=== PATIENT | female | born 1995 | race Caucasian/White ===

== ENCOUNTER → 2022-08-21 | Outpatient (CLI) | payer MEDICAID, SELFPAY ==
[2022-08-21 14:12] LABS: Absolute Lymphocyte Count 3.92 X10^3/uL (0.83-4.51); Basophil# 0.04 X10^3/uL; Basophil% 0.3 % (0-1); Eosinophil# 0.18 X10^3/uL; Eosinophils% 1.3 % (0-5); Hematocrit 44.6 % (37-47); Hemoglobin 15.3 g/dL (12.0-15.0); Lymphocyte # 3.92 X10^3/ul (0.83-4.51); Lymphocyte % 27.8 % (19-41); Mean Corp Hgb Conc 34.3 g/dL (32-36); Mean Corpuscular Hgb 30.3 pg (27.0-32.0); Mean Corpuscular Volume 88.3 fL (81-99); Monocyte# 0.93 X10^3/uL; Monocyte% 6.6 % (0-10); NRBC Flagged by Analyzer 0 % (0-5); Neutrophil # 8.97 X10^3/uL (2.7-7.7); Neutrophil % 63.5 % (47-70); Platelet Count 259 K/mm3 (150-450); RBC Distribution Width CV 12.4 % (11.6-14.6); RBC Distribution Width SD 40.6 fl (35.1-43.9); Red Blood Count 5.05 M/mm3 (4.2-5.4); White Blood Count 14.1 K/mm3 (4.4-11.0)
[2022-08-21 14:39] LABS: hCG Titer Quant., Serum 2 mIU/mL (1-3)
[2022-08-21 14:42] LABS: Estradiol 26.9 pg/mL; Follicle Stimulating Hormone 5.4 mIU/mL; Luteinizing Hormone 4.6 mIU/mL; T4 Free Direct 0.98 ng/dL (0.76-1.46); Thyroid Stim Hormone (TSH) 0.72 uIU/mL (0.358-3.74)
== END | disposition home or self-care (01) ==
PROVIDERS: Visit Provider Obstetrics & Gynecology
DX: N93.9 Abnormal uterine and vaginal bleeding, unspecified (principal)
CPT/HCPCS: 36415; 82670; 83001; 83002; 84439; 84443; 84702; 85025; 86850; 86900; 86901

== ENCOUNTER 2022-09-02 23:05 | Emergency (ER) | payer MEDICAID, SELFPAY ==
[2022-09-02 23:06] VITALS: BP 126/87; PULSE 94; RESP 16; TEMP 36.7; O2SAT 98; BMI 34.9
--- NOTE | 2022-09-02 23:14 | EX.ED.DYSGE1 ---
HPI History of Present Illness Chief Complaint: Abscess Informant: patient Onset/Context/Timing Onset: Days Context: Gradual Onset Current Severity: Moderate Maximum Severity: Moderate Narrative Narrative: Patient presents with left perineal abscess. She states she first noticed it a couple days ago. Usually she states she will get these and then will go away on their own. This one has become more painful and firm. Patient denies fever or chills. She is not diabetic. She denies possibility of . [facility] Medical History (Updated 09/02/22 @ 23:[address] Christine Arroyo MD) Anxiety Depression IBS (irritable bowel syndrome) Medical History no medical history no medical history Home Medications cephalexin 500 mg capsule 500 mg PO Q6 #40 caps 09/02/22 [Rx Last Taken Unknown] sulfamethoxazole 800 mg-trimethoprim 160 mg tablet (Bactrim DS) 1 tab PO BID #20 tabs 09/02/22 [Rx Last Taken Unknown] Allergy/AdvReac Type Severity Reaction Status Date / Time No Known Allergies Allergy Verified 09/02/22 23:07 Social History Smoking Status: Current every day smoker tobacco type: cigarettes ROS ROS ED Constitutional Constitutional ED: Denies chills or fever(s) Eyes Eyes: Denies change in vision or discharge from eye(s) ENT ENT ED: Denies discharge from eye(s), rhinorrhea or sore throat Cardiovascular Cardiovascular: Denies chest pain or palpitations Respiratory/Chest Respiratory/Chest: Denies cough or dyspnea Gastrointestinal Gastrointestinal: Denies abdominal pain, diarrhea, nausea or vomiting Genitourinary Genitourinary ED: Denies difficulty urinating or dysuria Musculoskeletal Musculoskeletal: Denies back pain or extremity pain Integumentary Reports abscess; Denies Abrasions or rash Neurologic Neurologic: Denies headache(s) or weakness Allergic/Immunologic Allergic/Immunologic ED: Denies lip swelling or urticaria EXAM Physical Exam Const Vital Signs: 09/02/22 23:06 Temperature 98.0 F Temperature Source Temporal Pulse Rate 94 Respiratory Rate 16 Blood Pressure 126/87 H Blood Pressure Mean 100 Pulse Ox 98 Oxygen Delivery Method Room Air Positive well nourished and well developed General Appearance ED: well developed HEENT Reports normocephalic and head/scalp atraumatic Eyes PERRL and EOMs intact bilaterally Neck supple Chest Wall inspection of chest normal and palpation of chest normal Resp normal respiratory effort and clear to auscultation bilaterally Cardio regular rate and regular rhythm GI normal to inspection, nondistended, normoactive bowel sounds Palpation: soft Narrative: 1.5 cm round abscess along the medial inferior left buttock. No tenderness along the labia. No overlying cellulitis. Area is indurated and firm with no fluctuance. Back/Spine no CVA tenderness Extremity normal to inspection Neuro oriented x3 and no sensory deficits noted Sensorium / Orientation: alert Motor Exam: strength 5/5 throughout Psych mental status grossly normal Skin Skin Narrative: Abscess as noted above. MDM MDM Treatment and Re-Evaluation Narrative: I discussed with the patient at this time the area is very indurated and firm. I do not believe I will get a lot of drainage out of it if we do I&D. We will treat her with oral antibiotics and have her do warm sitz baths. She is comfortable this plan. Return instructions were given. Discharge Plan Triage Chief Complaint: Abscess ED Provider: Christine Arroyo Dx/Rx/DC Orders Clinical Impression: Cutaneous abscess Instructions: ED Abscess Antibiotic Treatment Only Prescriptions: New sulfamethoxazole-trimethoprim [Bactrim DS] 800-160 mg tablet 1 tab PO BID Qty: 20 0RF cephalexin 500 mg capsule 500 mg PO Q6 Qty: 40 0RF Primary Care Provider: NOT,DEFINED Referrals: NOT,DEFINED [Primary Care Provider] - Disposition Disposition: Home, Self Care
[2022-09-02] MEDS: Cephalexin 250 MG Capsule 500 MG PO (23:26)
[2022-09-02] MEDS: Smz/Tmp Ds Tablet 1 TABLET PO (23:26)
== END 2022-09-02 23:28 | disposition home or self-care (01) ==
LOC: ED 23:21
PROVIDERS: Emergency Provider Emergency Medicine; Visit Provider Emergency Medicine
DX: L02.91 Cutaneous abscess, unspecified (principal); F17.210 Nicotine dependence, cigarettes, uncomplicated; F41.9 Anxiety disorder, unspecified; F32.A Depression, unspecified; K58.9 Irritable bowel syndrome, unspecified
CPT/HCPCS: 99283

== ENCOUNTER 2023-12-09 16:25 | Outpatient (CLI) | payer OTHER, SELFPAY ==
[2023-12-09 17:03] VITALS: BMI 36.1
[2023-12-09 17:05] VITALS: BP 120/66; PULSE 86; RESP 16; TEMP 37.2
[2023-12-09 17:15] LABS: Bacteria 0 SEEN /hpf (None Seen); Mucous, Urine 0 SEEN /hpf (<or=2+); Red Blood Cells-Urine 0 SEEN /hpf (0-5); White Blood Cells 0 SEEN /hpf (0-5)
[2023-12-09 17:20] VITALS: PULSE 86; O2SAT 97
[2023-12-09 17:28] LABS: Color, Urine Yellow (Yellow); Glucose, Dipstick Normal (Normal); Ketone-Dipstick 50 mg/dl (Negative); Leukocyte Esterase-Dipstick 25 /ul (Negative); Nitrite-Dipstick Negative (Negative); Occult Blood-Urine Negative /ul (Negative); Protein-Dipstick 15 mg/dl (Negative); Urine Bilirubin Dipstick Negative (Negative); Urine Clarity Clear (Clear); Urine Urobilinogen Normal (Normal)
[2023-12-09 17:39] LABS: Squamous Epithelial Cells - UA 5-10 SEEN /hpf (5-10)
--- NOTE | 2023-12-14 12:38 | OB.TRI.HP_ITS ---
HPI - General General Date of Service: 12/09/23 HPI Narrative MARYBEL TOLENTINO, is a 28 F who presents for pelvic pain. [facility] Medical History (Updated 12/14/23 @ 12:[address] Rona Villeda MD) Anxiety Depression IBS (irritable bowel syndrome) Home Medications NK 12/09/23 [History Last Taken Unknown] Allergy/AdvReac Type Severity Reaction Status Date / Time No Known Allergies Allergy Verified 12/09/23 17:04 Social History Smoking Status: Current every day smoker tobacco type: cigarettes Assessment & Plan (1) Threatened labor: QUALIFIERS: Trimester: second trimester Qualified Code(s): O47.02 - False labor before 37 completed weeks of gestation, second trimester PLAN: Plan Eval for pelvic pain
== END 2023-12-09 18:00 | disposition home or self-care (01) ==
LOC: WPOUT 17:02 → WP 17:03
PROVIDERS: Referring Provider Obstetrics & Gynecology; Visit Provider Obstetrics & Gynecology
DX: O47.1 False labor at or after 37 completed weeks of gestation (principal); Z3A.37 37 weeks gestation of pregnancy; O99.333 Smoking (tobacco) complicating pregnancy, third trimester; F17.210 Nicotine dependence, cigarettes, uncomplicated
CPT/HCPCS: 59025; 59050; 81001; 87086; 87088; 99221; G0378

== ENCOUNTER 2024-01-10 11:25 | Outpatient (CLI) | payer OTHER, SELFPAY ==
[2024-01-10] MEDS: Rho(D) Immune Globulin 300 MCG (1500 Unit) Syringe IV (12:36)
--- NOTE | 2024-01-11 12:18 | OB.TRI.NOTE ---
HPI - General General Date of Admission: 01/10/24 Date of Service: 01/10/24 HPI Narrative MARYBEL TOLENTINO, is a 28 F who presents s/p fall on her knees on 01/06, neg KB stain at [facility] labs. presents for prophylactic rhogam, had already at approx 28 weeks. No other c/o Maternal Data Information Final DISHA: 03/05/24 Gestational age: 32 PFSH [facility] Medical History (Updated 01/11/24 @ 12:[address] Emily Vale MD) IBS (irritable bowel syndrome) Anxiety Depression Home Medications ?Medication ?Instructions ?Recorded ?Last Taken ?Type NK 12/09/23 Unknown History Allergy/AdvReac Type Severity Reaction Status Date / Time No Known Allergies Allergy Verified 12/09/23 17:04 Social History Smoking Status: Current every day smoker tobacco type: cigarettes Assessment & Plan (1) Rh negative state in antepartum period: (2) Fall (on) (from) other stairs and steps, initial encounter: (3) 32 weeks gestation of : (4) High risk multigravida:
== END 2024-01-10 12:40 | disposition home or self-care (01) ==
LOC: WPOUT 11:31 → WP 11:31
PROVIDERS: Visit Provider Advanced Practice Midwife
DX: O9A.213 Injury, poisoning and certain other consequences of external causes complicating pregnancy, third trimester (principal); O99.333 Smoking (tobacco) complicating pregnancy, third trimester; Z3A.32 32 weeks gestation of pregnancy; O26.893 Other specified pregnancy related conditions, third trimester; W10.9XXA Fall (on) (from) unspecified stairs and steps, initial encounter; T14.90XA Injury, unspecified, initial encounter
CPT/HCPCS: 36415; 86900; 86901; 90384; 96372; 99221; G0378; J2790; J2791

== ENCOUNTER 2024-02-28 11:23 | Inpatient (IN) | payer OTHER, SELFPAY ==
[2024-02-28] VITALS (42 sets, daily range): BP systolic 102–139; BP diastolic 50–74; PULSE 69–101; RESP 14–18; TEMP 36.1–36.8; O2SAT 94–100; BMI 34.7
[2024-02-28] MEDS: Lactated Ringers 1,000 ML 50 ML IV (11:56)
[2024-02-28 12:12] LABS: Absolute Lymphocyte Count 5.26 X10^3/uL (0.83-4.51); Absolute Neutrophil Count 13.9 X10^3/uL (2.0-7.7); Basophil# 0.09 X10^3/uL; Basophil% 0.4 % (0-1); Eosinophils% 1.4 % (0-5); Hematocrit 33.5 % (37-47); Hemoglobin 10.9 g/dL (12.0-15.0); Lymphocyte # 5.26 X10^3/ul (0.83-4.51); Lymphocyte % 23.7 % (19-41); Mean Corp Hgb Conc 32.5 g/dL (32-36); Mean Corpuscular Hgb 27.5 pg (27.0-32.0); Mean Corpuscular Volume 84.4 fL (81-99); Mean Platelet Vol. 9.6 fl (6.2-12.0); Monocyte# 1.92 X10^3/uL; Monocyte% 8.6 % (0-10); NRBC Flagged by Analyzer 0 % (0-5); Neutrophil # 13.92 X10^3/uL (2.7-7.7); Neutrophil % 62.7 % (47-70); POSITIVE DIFFERENTIAL YES; Platelet Count 284 K/mm3 (150-450); RBC Distribution Width CV 14.1 % (11.6-14.6); RBC Distribution Width SD 43.8 fl (35.1-43.9); Red Blood Count 3.97 M/mm3 (4.2-5.4); White Blood Count 22.2 K/mm3 (4.4-11.0)
[2024-02-28 12:15] LABS: Differential Indicated SCAN CRITERIA MET
[2024-02-28] MEDS: Oxytocin 15 Units/NS 250ml 15 UNITS/250 ML IV.SOLN 2 UNITS IV (12:15)
[2024-02-28 12:24] LABS: Bedside Glucose 69 mg/dL (74-106)
[2024-02-28 12:57] LABS: Syphilis Antibodies Non-reactive
[2024-02-28 13:11] LABS: Differential Comment SCANNED; Red Cell Morphology NORM C+C NORMAL (NORM C&C); Vacuolated Cells 1+
[2024-02-28 16:36] LABS: Bedside Glucose 92 mg/dL (74-106)
[2024-02-28 19:40] LABS: Bedside Glucose 72 mg/dL (74-106)
[2024-02-28] MEDS: Lactated Ringers 1,000 ML 999 ML IV (20:00)
[2024-02-28] MEDS: fentaNYL-bupivacaine (epidural) 100 ML BAG EPIDURAL (21:10)
--- NOTE | 2024-02-28 21:41 | PN.OBGYN_ITS ---
Subjective Subjective AROM for clear fluid. Internal monitors placed without difficulty. Epidural in place. 4 cm Objective Data Objective Data Vital Signs: Vital Signs Temp Pulse Resp BP Pulse Ox 98.1 F 89 14 124/56 H 100 02/28/24 21:38 02/28/24 21:40 02/28/24 21:38 02/28/24 21:40 02/28/24 21:34 Weight: 103.589 kg Body Mass Index (BMI) 34.7 Intake & Output: Intake and Output for Last 24 Hours 02/26/24 02/27/24 02/28/24 23:59 23:59 23:59 Intake Total 967.44 / 967.44 Output Total 300 / 300 Balance 667.44 / 667.44 Lab / Micro Data 02/28/24 11:50 Labs: Laboratory Results - last 24 hr 02/28/24 11:50: WBC 22.2 H, RBC 3.97 L, Hgb 10.9 L, Hct 33.5 L, MCV 84.4, MCH 27.5, MCHC 32.5, RDW Std Deviation 43.8, RDW Coeff of Rey 14.1, Plt Count 284, MPV 9.6, Immature Gran % (Auto) 3.200 H, Neut % (Auto) 62.7, Lymph % (Auto) 23.7, Wallace % (Auto) 8.6, Eos % (Auto) 1.4, Baso % (Auto) 0.4, Absolute Neuts (auto) 13.9 H, Absolute Lymphs (auto) 5.26 H, Nucleated RBC % 0, Differential Comment SCANNED, Diff Path Review May foll, Toxic Vacuolation 1+, RBC Morphology NORM C+C, Syphilis Total Ab Non-reactive, Blood Type AB NEGATIVE, Antibody Screen POSITIVE H, Antibody Identification ANTI-D 02/28/24 11:50: Antibody Identification Cancelled 02/28/24 12:04: POC Glucose 69 L 02/28/24 16:14: POC Glucose 92 02/28/24 19:18: POC Glucose 72 L NST FHR Rate Baby A Baseline: 120 Variability:: Moderate Accelerations:: 15 x 15 Decelerations:: None NST Reactive:: Yes FHR Category:: Category I Uterine Activity:: q 3
--- NOTE | 2024-02-28 21:43 | PCM.HP.OB ---
HPI - General General Date of Admission: 02/28/24 Date of Service: 02/28/24 Chief Complaint: Induction HPI Narrative MARYBEL TOLENTINO, is a 28 F who presents induction of labor for GDM on insulin Maternal Data Information Final DISHA: 03/05/24 Gestational age: 39+1 PFSH PFSH Medical History (Updated 02/28/24 @ 21:[address] Christine Lozano MD) IBS (irritable bowel syndrome) Anxiety Depression Medical History no medical history Home Medications ?Medication ?Instructions ?Recorded ?Last Taken ?Type blood sugar diagnostic (Contour 02/28/24 Unknown History Next Test Strips) blood-glucose meter (Contour Next 02/28/24 Unknown History EZ Meter) insulin NPH isoph U-100 human 100 12 unit subcut QHS GDM 02/28/24 02/27/24 History unit/mL (3 mL) subcutaneous pen (Humulin N NPH U-100 Insulin KwikPen) lancets (Microlet Lancet) 02/28/24 Unknown History pen needle, diabetic 31 gauge x 02/28/24 Unknown History 1/4 (Droplet Pen Needle) Allergy/AdvReac Type Severity Reaction Status Date / Time No Known Allergies Allergy Verified 02/28/24 12:03 Family History no significant family his Surgical History no surgical history Social History Smoking Status: Heavy Smoker (>10/day) History 3 Elective abortions Hx Para 1 Spontaneous abortions Hx # Term Pregnancies Ectopic pregnancies Hx # Pregnancies Multiple births # of living children NST FHR Rate Baby A Variability:: Moderate Accelerations:: 15 x 15 Decelerations:: None NST Reactive:: Yes FHR Category:: Category I ROS Constitutional Constitutional: Denies fatigue, fever(s) or malaise Eyes Eyes: Denies change in vision ENT HEENT: Denies dizziness or headache(s) Cardiovascular Cardiovascular: Denies chest pain, dyspnea or lightheadedness Respiratory/Chest Respiratory/Chest: Denies cough or dyspnea Gastrointestinal Gastrointestinal: Denies change in bowel habits Genitourinary Genitourinary: Denies burning urination or genital lesions Integumentary Integumentary: Denies rash Neurologic Neurologic: Denies confusion, dizziness, headache(s), numbness or weakness Vital Signs Vital Signs Vital Signs: 02/28/24 10:58 02/28/24 10:58 02/28/24 10:58 Temperature 97.0 F L Temperature Source Tympanic Pulse Rate Respiratory Rate 17 Blood Pressure BP Systolic BP Diastolic Pulse Ox 02/28/24 11:01 02/28/24 11:01 02/28/24 14:01 Temperature Temperature Source Pulse Rate 80 Respiratory Rate Blood Pressure 121/62 H 115/59 L BP Systolic 121 115 BP Diastolic 62 59 Pulse Ox 02/28/24 14:01 02/28/24 14:01 02/28/24 14:01 Temperature Temperature Source Tympanic Pulse Rate 69 Respiratory Rate 16 Blood Pressure BP Systolic BP Diastolic Pulse Ox 02/28/24 14:01 02/28/24 15:25 02/28/24 15:25 Temperature 97.0 F L Temperature Source Tympanic Pulse Rate Respiratory Rate 16 Blood Pressure BP Systolic BP Diastolic Pulse Ox 02/28/24 15:25 02/28/24 15:26 02/28/24 15:26 Temperature 97.0 F L Temperature Source Pulse Rate 76 Respiratory Rate Blood Pressure 132/61 H BP Systolic 132 BP Diastolic 61 Pulse Ox 02/28/24 16:41 02/28/24 16:41 02/28/24 16:41 Temperature 97.1 F L Temperature Source Tympanic Pulse Rate Respiratory Rate 15 Blood Pressure BP Systolic BP Diastolic Pulse Ox 02/28/24 16:42 02/28/24 16:42 02/28/24 19:13 Temperature Temperature Source Temporal Pulse Rate 83 Respiratory Rate Blood Pressure 107/52 L BP Systolic 107 BP Diastolic 52 Pulse Ox 02/28/24 19:13 02/28/24 19:13 02/28/24 19:14 Temperature 98.2 F Temperature Source Pulse Rate Respiratory Rate 14 Blood Pressure 116/59 L BP Systolic 116 BP Diastolic 59 Pulse Ox 02/28/24 19:14 02/28/24 19:16 02/28/24 19:16 Temperature Temperature Source Pulse Rate 81 81 Respiratory Rate Blood Pressure BP Systolic BP Diastolic Pulse Ox 97 02/28/24 20:32 02/28/24 20:32 02/28/24 20:54 Temperature Temperature Source Pulse Rate 84 88 Respiratory Rate Blood Pressure BP Systolic BP Diastolic Pulse Ox 97 02/28/24 20:54 02/28/24 20:59 02/28/24 20:59 Temperature Temperature Source Pulse Rate 95 Respiratory Rate Blood Pressure BP Systolic BP Diastolic Pulse Ox 100 99 02/28/24 20:59 02/28/24 20:59 02/28/24 20:59 Temperature Temperature Source Pulse Rate 97 Respiratory Rate 16 Blood Pressure 135/74 H BP Systolic 135 BP Diastolic 74 Pulse Ox 02/28/24 21:03 02/28/24 21:03 02/28/24 21:04 Temperature Temperature Source Pulse Rate 88 91 Respiratory Rate Blood Pressure 137/65 H BP Systolic 137 BP Diastolic 65 Pulse Ox 02/28/24 21:04 02/28/24 21:08 02/28/24 21:08 Temperature Temperature Source Pulse Rate 86 Respiratory Rate Blood Pressure 132/62 H BP Systolic 132 BP Diastolic 62 Pulse Ox 97 02/28/24 21:08 02/28/24 21:09 02/28/24 21:09 Temperature Temperature Source Pulse Rate 88 Respiratory Rate 14 Blood Pressure BP Systolic BP Diastolic Pulse Ox 98 02/28/24 21:14 02/28/24 21:14 02/28/24 21:15 Temperature Temperature Source Pulse Rate 88 Respiratory Rate Blood Pressure 106/53 L BP Systolic 106 BP Diastolic 53 Pulse Ox 99 02/28/24 21:15 02/28/24 21:15 02/28/24 21:19 Temperature Temperature Source Pulse Rate 90 90 Respiratory Rate 14 Blood Pressure BP Systolic BP Diastolic Pulse Ox 02/28/24 21:19 02/28/24 21:19 02/28/24 21:19 Temperature Temperature Source Pulse Rate 83 Respiratory Rate Blood Pressure 103/53 L BP Systolic 103 BP Diastolic 53 Pulse Ox 97 02/28/24 21:19 02/28/24 21:24 02/28/24 21:24 Temperature Temperature Source Pulse Rate 91 Respiratory Rate 16 Blood Pressure BP Systolic BP Diastolic Pulse Ox 97 02/28/24 21:25 02/28/24 21:25 02/28/24 21:29 Temperature Temperature Source Pulse Rate 80 84 Respiratory Rate Blood Pressure 104/51 L BP Systolic 104 BP Diastolic 51 Pulse Ox 02/28/24 21:29 02/28/24 21:30 02/28/24 21:30 Temperature Temperature Source Pulse Rate 85 Respiratory Rate Blood Pressure 110/59 L BP Systolic 110 BP Diastolic 59 Pulse Ox 98 02/28/24 21:34 02/28/24 21:34 02/28/24 21:38 Temperature Temperature Source Temporal Pulse Rate 101 H Respiratory Rate Blood Pressure BP Systolic BP Diastolic Pulse Ox 100 02/28/24 21:38 02/28/24 21:38 02/28/24 21:40 Temperature 98.1 F Temperature Source Pulse Rate Respiratory Rate 14 Blood Pressure 124/56 H BP Systolic 124 BP Diastolic 56 Pulse Ox 02/28/24 21:40 Temperature Temperature Source Pulse Rate 89 Respiratory Rate Blood Pressure BP Systolic BP Diastolic Pulse Ox Weight Weight: 103.589 kg Body Mass Index (BMI) 34.7 Physical Exam Const alert and no apparent distress General Appearance: cooperative HEENT normocephalic Resp normal respiratory effort Cardio regular rate GI soft to palpation GI Narrative: gravid, nontender, appropriate for gestational age Extremity no calf tenderness General Extremity: edema Skin no wounds Rashes: No rashes noted Psych activity/motor behavior normal Labs Labs Labs: Blood Type AB NEGATIVE Antibody Screen POSITIVE H Hct 33.5 % (37-47) L Hgb 10.9 g/dL (12.0-15.0) L Syphilis Total Ab Non-reactive Assessment & Plan (1) GDM, class A2: (2) 39 weeks gestation of : PLAN: Plan Pitocin induction of labor GBS negative Epidural prn
[2024-02-28] MEDS: LACTATED RINGERS 500 ML 999 ML IV (23:19)
[2024-02-28] MEDS: Lactated Ringers 1,000 ML 200 ML IV (23:22)
[2024-02-28 23:40] LABS: Bedside Glucose 92 mg/dL (74-106)
[2024-02-29] VITALS (32 sets, daily range): BP systolic 107–131; BP diastolic 53–75; PULSE 72–104; RESP 12–17; TEMP 36.2–37.2; O2SAT 88–98
[2024-02-29] MEDS: Ondansetron 4 MG/2 ML Vial IV
[2024-02-29 00:09] LABS: Bedside Glucose 87 mg/dL (74-106)
[2024-02-29] MEDS: fentaNYL-bupivacaine (epidural) 100 ML BAG EPIDURAL (00:33)
[2024-02-29 01:33] LABS: Bedside Glucose 79 mg/dL (74-106)
[2024-02-29] MEDS: Oxytocin 15 Units/NS 250ml 15 UNITS/250 ML IV.SOLN 83 UNITS IV (02:33)
--- NOTE | 2024-02-29 02:44 | EX.PCM.OBRPT ---
Assessment & Plan (1) GDM, class A2: (2) (spontaneous vaginal delivery): Maternal Data Information Final DISHA: 03/05/24 Gestational age: 39+2 Vaginal Delivery Maternal Presentation Maternal Presentation: Medically Indicated Induction Maternal Presentation: GDM on insulin Type of Induction: Pitocin and Amniotomy Operative Information Date of Procedure: 02/29/24 Pre-Operative Diagnosis: Term IUP GDMA2 Post-Operative Diagnosis: same Surgery / Procedure Performed: Spontaneous Vaginal Delivery Type of Anesthesia: Epidural Estimated Blood Loss: 100 cc Time of Delivery: 01:58 Findings Description of Procedure: Patient pushed over an intact perineum delivering the head in OA presentation. Followed quickly by both shoulders. Infant cried on delivery. He was placed on maternal abdomen. Cord was clamped and cut. The Placenta delivered with manual traction. The cord did evulse. The uterus was explored and no additional tissue was found. Bleeding is minimal. A second degree laceration was repaired Presentation: Vertex and PAIGE Amniotic Membrane Rupture Type: Artificial Time of Membrane Rupture: 2129 Amniotic Fluid Description: Clear Placental Delivery Description: Expressed and Manual Removal Placenta Disposition: [facility] Cord Vessel Description: 3 Vessels Cord Entanglement: None Infant A Gender: Male (1 minute): 8 (5 minute): 9 Delayed Cord Clamping: Yes Post Vaginal Delivery Medications Given After Delivery: IV Pitocin Episiotomy Description: None Laceration: Midline and 2nd degree Complication Complications: None
[2024-02-29 03:21] LABS: Bedside Glucose 97 mg/dL (74-106)
[2024-02-29] MEDS: Rho(D) Immune Globulin 300 MCG (1500 Unit) Syringe IV (04:07)
[2024-02-29] MEDS: Ibuprofen 600 MG Tablet PO (04:08)
[2024-02-29] MEDS: 0.9% Saline Lock 10 ML Syringe IV (05:39)
[2024-02-29 11:46] LABS: Pathologist Review Reviewed
[2024-02-29] MEDS: Acetaminophen 500 MG Tablet 1000 MG PO (20:09)
[2024-03-01] VITALS (9 sets, daily range): BP systolic 106–119; BP diastolic 52–61; PULSE 69–88; RESP 14–16; TEMP 36.4–37.3; O2SAT 93–98
[2024-03-01 06:18] LABS: Bedside Glucose 73 mg/dL (74-106)
--- NOTE | 2024-03-01 09:08 | PCM.DC.SUM ---
Providers Date of Admission: 02/28/24 Primary Care Physician: Dr. Brigida Bhagat, DO Reason For Visit: VAGINAL DELIVERY Diagnosis Discharge Diagnosis (1) GDM, class A2: Status: Acute Code(s): O24.419 - Gestational diabetes mellitus in , unspecified control (2) (spontaneous vaginal delivery): Status: Acute Code(s): O80 - Encounter for full-term uncomplicated delivery Medications at Discharge Home Medications blood sugar diagnostic (Contour Next Test Strips) 02/28/24 blood-glucose meter (Contour Next EZ Meter) 02/28/24 lancets (Microlet Lancet) 02/28/24 pen needle, diabetic 31 gauge x 1/4 (Droplet Pen Needle) 02/28/24 ibuprofen 600 mg tablet 600 mg PO Q6H PRN PRN Pain Score 1-10 #0 tabs 03/01/24 Hospital Course Operations None Procedures None Summary of Care Provided Minutes Spent on Discharge: 15 Hospital Course: Patient had . Hospital course was uneventful. Pumping and giving via bottle. May supplement with formula. Ambulating and voiding without difficulty. Lochia is minimal. Denies pain. Desires discharge home today. Physical Exam Const alert and no apparent distress General Appearance: cooperative and comfortable Exam Limitations: no limitations HEENT normocephalic Eyes General Eye: normal appearance of both eyes Neck full ROM General: normal visual inspection Chest Chest: symmetrical chest wall rise Resp normal respiratory effort and normal air movement Effort and Inspection: symmetric chest movement Auscultation: clear to auscultation bilaterally Cardio regular rate and regular rhythm GI normal to inspection, nondistended, normoactive bowel sounds Back/Spine normal ROM Extremity full ROM and no calf tenderness General Extremity: normal exam except as noted Skin no rashes or lesions noted Neuro CN's II-XII intact bilaterally Psych mental status grossly normal Weight / BMI Weight Weight: 228 lb 6 oz Body Mass Index (BMI) 34.7 ABG / Lab / Microbiology Data 02/28/24 11:50 Laboratory: Laboratory Results - last 24 hr 02/28/24 11:50: Diff Path Review Reviewed 03/01/24 05:59: POC Glucose 73 L D/C Instructions Discharge Diet: No restrictions May resume sexual activity in: 6-8 weeks Weight Bearing Status: Weight bearing as tolerated Call your doctor if you observe: Fever of 101 or Higher, Inability to urinate, Using more than 1 pad per hour, Shortness of breath, Chest pain, Calf discomfort and Uncontrolled pain When: 2 weeks virtual visit/ 6 weeks in office Meaningful Use Info Meaningful Use Meaningful Use Diagnoses (Choose all that apply): None applicable Ischemic Stroke Statin Dosing Therapy Reference: STATIN DOSE THERAPY REFERENCE: * Patients > 75 years receive moderate or high dose statin therapy. * Patients 75 years or YOUNGER should receive HIGH intensity statin dose unless contraindicated. You will be required to document reason for non-treatment if statin daily dose does not meet guidelines. HIGH DOSE STATIN THERAPY DAILY Atorvastatin > than or = to 40 mg Rosuvastatin > than or = to 20 mg Amlodipine + Atorvastatin > than or = to 2.5/40 mg Ezetimibe + Simvastatin 10/80 mg Simvastatin 80mg Discharge Plan Admission Admit Date/Time: 02/28/24 11:23 Primary Reason for Your Visit: Labor and Delivery Attending Provider: Christine Lozano Primary Care Provider: Brigida Bhagat Discharge Orders/Prescriptions Prescriptions: New ibuprofen 600 mg Tablet 600 mg PO Q6H PRN PRN (Reason: Pain Score 1-10) Qty: 0 0RF Discontinued Humulin N NPH Insulin KwikPen 100 unit/mL (3 mL) insulin pen 12 unit subcut QHS No Action (DME) Contour Next Test Strips Strip MISCELLANEOUS (DME) lancets [Microlet Lancet] Misc MISCELLANEOUS Patient Comments: use 1 LANCET to TEST BLOOD SUGAR UP TO 7 TIMES DAILY (DME) pen needle, diabetic [Droplet Pen Needle] 31 gauge x 1/4 needle MISCELLANEOUS DAILY (DME) blood-glucose meter [Contour Next EZ Meter] Misc MISCELLANEOUS UD Referrals / Follow Up: Brigida Bhagat DO [Primary Care Provider] - Disposition Disposition (needs filled in before D/C Order can be placed): Home, Self Care
--- NOTE | 2024-03-01 12:14 | CASEMGMT ---
Social Work Assessment Labor and Delivery Unit Patient Address: [address] [place] [address] Phone number: [phone] Date of Referral: 02/29/24 Time of Referral:? 652 Referred By: Christine Lozano Date of Intervention: ?03/01/24? Time of Intervention:? 944 Reason for Referral:? mental health Sw completed chart review and acknowledges social work consult due to maternal mental health. Sw presented to bedside and introduced self to mother of baby (MOB- [place]) and father of baby (FOB- Eber). Sw explained reason for sw involvement and completed psychosocial assessment. History obtained from: medical records, MOB and FOB Household composition: EVER states that currently residing in the family home is herself, FOB and MOB's 10 year old son (Omar). EVER denies any issues or concerns with their current residence at this time. Patient's parent/guardian status:? ?EVER states that she and ABISAI met while living close to each other and have been together for 8 years. Parents are and this is their first child together. No issues or concerns reported of domestic violence or intimate partner violence. Medical History: ?EVER is 28 year old female who is 3, para 1- now 2 following labor and delivery of . EVER received routine care during with [facility]. EVER presented to hospital for an induction of labor and delivered baby on 02/29/24 at 39 weeks gestation via spontaneous vaginal delivery. Baby boy, named Jose, was born weighing 7lb 14oz with apgars of 8 and 9 at one and five minutes of life, respectfully. Baby will be followed by [facility] for pediatrics. Educational Status:?EVER completed high school and ABISAI states that he finished the 9th grade- did not obtain his GED. 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 Infant Supplies:?? EVER states that she has obtained all necessary baby supplies, including: car seat, safe sleep space, clothes, diapers and wipes. Childcare/Caregiver(s): EVER states that while on maternity leave she will be the primary caregiver to baby along with FOB when he is not at work. When both parents are working EVER states that they have a large group of friends and family members who are able to help watch baby for them. ? Transportation:?? Both parents have their drivers license and reliable means of transportation, no barriers at this time. Programs/Agencies Involved: ???EVER receives insurance through [employer] ([employer]). EVER denies being financially eligible for other financial resources (SNAP). Whitley informed EVER that if she is eligible for insurance through [employer] than she would be eligible for [place] and explained benefits of program. EVER states that she may look into getting connected at some point. Children Services/Legal Issues:??? No history of children services involvement, no issues or concerns warranting referral to be made at this time. Behavioral Health Issues: ??Mental Health History: ABISAI denies mental health diagnoses. EVER states that she has been diagnosed with anxiety and depression and did experience post depression after she delivered her first baby. EVER states at that time she mostly struggled with feeling alone and did not have any support. EVER states that at this time her life looks much different and she has a lot of support from ABISAI and many other family and friends. EVER states that she is not prescribed any medications to help manage her mental herve, but knows to talk to her OBGYN or her primary care doctor if she feels as though she is struggling. MOB states at this time she does not feel overwhelmed or anxious.? Substance Use History:?EVER denies any substance use prior to and during . ? Family History:?Parents deny family history of substance use or addiction issues, and no significant mental health diagnoses. ? Drug Screens: ?NO drug screens observed during chart review. ? Family/Social Stressors:? Parents deny any issues or concerns at this time. Support Systems: EVER states that her biggest supports are paternal grandma, paternal aunt, family members on MOB's side of the family and a lot of friends. Depression/Shaken Baby/Safe Sleeping:? Whitley educated parents on signs and symptoms of baby blues and mood and anxiety disorders to be on the lookout for during this period. Sw explained to parents that mother's with history of anxiety/ depression can be more at risk to experience mood and anxiety disorders. Parents express understanding. Sw educated parents about shaken baby prevention and ABCs of safe sleep. Parents express understanding. ASSESSMENT:? MOB and baby are admitted following labor and delivery. MOB was observed to provide hands on loving care to . FOB was observed to be supportive and involved as well. MOB with mental health history positive for anxiety and depression. MOB denies any linkage to mental health services or supports at this time. MOB states that she is more versed in what to expect during this period and has a lot more supports involved. Parents have obtained all necessary baby supplies needed for baby. MOB talkative and receptive to sw involvement and support throughout completion of psychosocial assessment. PLAN:? MOB and baby to be discharged when medically ready. ?No other services requested or indicated. Jagdeep Dougherty, CONSTRUCTION ENGINEERING MANAGER, UPPER LINING CEMENTER
== END 2024-03-01 13:45 | disposition home or self-care (01) | DRG 807 ==
PROVIDERS: Admitting Provider Obstetrics & Gynecology; PCP Family Medicine; Referring Provider Obstetrics & Gynecology; Visit Provider Obstetrics & Gynecology
DX: O24.424 Gestational diabetes mellitus in childbirth, insulin controlled (principal); Z37.0 Single live birth; F17.200 Nicotine dependence, unspecified, uncomplicated; O99.334 Smoking (tobacco) complicating childbirth; O70.1 Second degree perineal laceration during delivery; Z3A.39 39 weeks gestation of pregnancy
CPT/HCPCS: 59025; 59050; 82962; 85025; 85461; 86780; 86850; 86870; 86900; 86901; 90384; 99221; J7120; A4216; G0378; J2405; J2790; J2791

== ENCOUNTER → 2025-04-09 | Outpatient (CLI) | payer OTHER, SELFPAY ==
[2025-04-11 21:08] LABS: Chlamydia By Nucleic Acid AMP Negative (Negative); Gonococcus By Nucleic Acid AMP Negative (Negative)
[2025-04-13 16:09] LABS: HPV APTIMA, High Risk Negative (Negative)
== END | disposition home or self-care (01) ==
LOC: LABSPEC 14:05
PROVIDERS: PCP Family Medicine; Referring Provider Obstetrics & Gynecology; Visit Provider Obstetrics & Gynecology
DX: O09.90 Supervision of high risk pregnancy, unspecified, unspecified trimester (principal); Z12.4 Encounter for screening for malignant neoplasm of cervix; Z3A.00 Weeks of gestation of pregnancy not specified
CPT/HCPCS: 87086; 87088; 87491; 87591; 87624; 88175; G0145

== ENCOUNTER → 2025-05-10 | Outpatient (CLI) | payer OTHER, SELFPAY ==
[2025-05-10 14:42] LABS: Hematocrit 39.8 % (37-47); Hemoglobin 14.2 g/dL (12.0-15.0); Immature Granulocytes Count 0.070 X10^3/uL (0.0-0.0); Mean Corp Hgb Conc 35.7 g/dL (32-36); Mean Corpuscular Volume 86.5 fL (81-99); Mean Platelet Vol. 9.1 fl (6.2-12.0); NRBC Flagged by Analyzer 0 % (0-5); Platelet Count 230 K/mm3 (150-450); RBC Distribution Width CV 12.6 % (11.6-14.6); RBC Distribution Width SD 39.2 fl (35.1-43.9); Red Blood Count 4.60 M/mm3 (4.2-5.4); White Blood Count 14.3 K/mm3 (4.4-11.0)
[2025-05-10 15:24] LABS: HIV Nonreactive (Nonreactive); Hepatitis B Surface Antigen Nonreactive (Nonreactive); Hepatitis C Antibody Nonreactive (Nonreactive); Syphilis Antibodies Nonreactive (Nonreactive)
== END | disposition home or self-care (01) ==
LOC: LAB 13:58
PROVIDERS: PCP Family Medicine; Referring Provider Obstetrics & Gynecology; Visit Provider Obstetrics & Gynecology
DX: O99.210 Obesity complicating pregnancy, unspecified trimester (principal); Z86.32 Personal history of gestational diabetes; O09.299 Supervision of pregnancy with other poor reproductive or obstetric history, unspecified trimester; Z3A.00 Weeks of gestation of pregnancy not specified
CPT/HCPCS: 36415; 83036; 85025; 86703; 86762; 86780; 86803; 86850; 86900; 86901; 87340